=== PATIENT | female | born 1975 | race African-American/Black ===

== ENCOUNTER → 2017-06-17 | Outpatient (CLI) | payer MEDICARE ==
[~2017-06-17] MED LIST: ASPIRIN ADULT L81 M2 PO; AVPAK AZITHROM250 M1 PO; BACTRIM DS 8001 TAB PO; CATAFLAM50 MG PO; CHERATUSSIN AC240 ML PO; CIPRO500 MG PO; CLEOCIN HCL150 MG PO; CRESTOR PO; DEPAKOTE500 MG PO; DIFLUCAN150 MG PO; FIORICET 325 MG1 TAB PO; Fioricet 325 MG1 TAB PO; GLUCOTROL5 MG PO; HYCODAN 1.5 MG480 M1 PO; KROGER NIC21 MG/24 H T; LOPRESSOR50 M1 PO; Lopressor25 MG PO; MELOXICAM7.5 MG PO; METOPROLOL SUCC25 M2 PO; MOTRIN800 MG PO; NITROSTAT0.4 MG SL; PEPCID20 MG PO; PERCOCET 325 MG1 TA2 PO; PRAVACHOL80 M1 PO; PREDNICOT20 MG PO; PREDNISONE10 MG PO; PREDNISONE50 MG PO; SYNTHROID0.025 MG PO; TEGRETOL200 MG PO; TESSALON PERLE100 M1 PO; VENTOLIN H0.09 MG/AC INH; ZITHROMAX Z PA250 MG PO; ZITHROMAX250 MG PO; Zofran4 MG PO; [UNRECOGNIZED DRUG - OTHER] PO
== END | disposition home or self-care (01) ==
LOC: CARD 14:05
DX: I25.10 Atherosclerotic heart disease of native coronary artery without angina pectoris (principal)

== ENCOUNTER 2017-11-11 16:54 | Inpatient (IN) | payer MEDICARE, OTHER ==
[~2017-11-11] VITALS: Ht 170.2 cm; Wt 132.9 kg
[2017-11-11 17:05] VITALS: BP 150/92
[2017-11-11 19:22] VITALS: BP 143/83
[2017-11-11 19:46] LABS: BASO # 0.1 10*3/uL (0.0-0.1); BASO % 0.8 % (0.0-1.0); EOS # 0.2 10*3/uL (0.0-0.4); EOS % 2.5 % (1.0-4.0); HEMATOCRIT 37.3 % (37.0-47.0); HEMOGLOBIN 12.3 g/dl (12.0-16.0); LYMPH # 3.1 10*3/uL (1.3-4.4); LYMPH % 37.2 % (27.0-41.0); MEAN CELL VOLUME 95.2 fl (81.0-99.0); MEAN CORPUSCULAR HGB 31.4 pg (27.0-31.0); MEAN PLATELET VOLUME 11.2 fl (9.6-12.3); MONO # 0.4 10*3/uL (0.1-1.0); MONO % 4.8 % (3.0-9.0); NEUT # 4.6 10*3/uL (2.3-7.9); NEUT % 54.5 % (47.0-73.0); PLATELET COUNT AUTOMATED 213 10*3/uL (130-400); RED BLOOD COUNT 3.92 10*6/uL (4.10-5.10); RED CELL DISTRI WIDTH 12.8 % (0-14.5); WHITE BLOOD COUNT 8.4 10*3/uL (4.8-10.8)
[2017-11-11 19:56] LABS: ACT PARTIAL THROMBO TIME 28.2 SECONDS (20.8-31.5)
[2017-11-11 20:02] LABS: ALBUMIN 3.6 gm/dl (3.1-4.5); ALKALINE PHOSPHATASE 92 U/L (45-117); BUN 9 mg/dl (7-24); CHLORIDE 104 mmol/L (98-107); CREATININE 0.81 mg/dL (0.55-1.02); POTASSIUM 3.8 mmol/L (3.5-5.1); SGOT/AST 31 IU/L (3-35); SGPT/ALT 49 U/L (12-78); SODIUM 139 mmol/L (136-145); TOTAL PROTEIN 7.3 gm/dL (6.4-8.2)
[2017-11-11 20:05] LABS: TROPONIN I < 0.015 ng/ml (<0.045)
[2017-11-11 20:08] VITALS: BP 142/78
[2017-11-11 21:25] VITALS: BP 138/78
[2017-11-12] VITALS: BP 120/68
[2017-11-12 04:00] VITALS: BP 140/80
[2017-11-12 07:01] LABS: BASO # 0.1 10*3/uL (0.0-0.1); BASO % 1.1 % (0.0-1.0); EOS # 0.2 10*3/uL (0.0-0.4); EOS % 2.8 % (1.0-4.0); HEMOGLOBIN 12.3 g/dl (12.0-16.0); LYMPH # 2.6 10*3/uL (1.3-4.4); LYMPH % 35.4 % (27.0-41.0); MEAN CELL VOLUME 95.6 fl (81.0-99.0); MEAN CORPUSCULAR HGB 31.8 pg (27.0-31.0); MEAN CORPUSCULAR HGB CONC 33.2 g/dl (33.0-37.0); MEAN PLATELET VOLUME 11.3 fl (9.6-12.3); MONO # 0.4 10*3/uL (0.1-1.0); MONO % 5.8 % (3.0-9.0); NEUT % 54.6 % (47.0-73.0); PLATELET COUNT AUTOMATED 195 10*3/uL (130-400); RED BLOOD COUNT 3.87 10*6/uL (4.10-5.10); RED CELL DISTRI WIDTH 12.8 % (0-14.5); WHITE BLOOD COUNT 7.2 10*3/uL (4.8-10.8)
[2017-11-12 07:11] LABS: BUN 12 mg/dl (7-24); CHLORIDE 107 mmol/L (98-107); CREATININE 0.75 mg/dL (0.55-1.02); PHOSPHOROUS 4.3 mg/dL (2.5-4.9); SODIUM 139 mmol/L (136-145); TRIGLYCERIDES 202 mg/dl (<150); VLDL CHOLESTEROL 40 mg/dL (6-40)
[2017-11-12 07:19] LABS: CHOLESTEROL 224 mg/dL (<200); HDL CHOLESTEROL 42 mg/dl (40-60); LDL CHOLESTEROL 142 mg/dL (9-159)
[2017-11-12 07:21] LABS: CARBAMAZEPINE (TEGRETOL) TOTAL < 0.5 ug/ml (4-12); VALPROIC ACID (DEPAKENE) < 3.0 ug/ml (50-100)
[2017-11-12 07:54] VITALS: BP 139/73
[2017-11-12 08:18] LABS: VITAMIN D, 25-HYDROXY 6.6 ng/mL (30-100)
[2017-11-12] MEDS ORDERED: Synthroid,Lev200 MCG PO (10:15)
[2017-11-12] MEDS ORDERED: SYNTHROID,LEVO75 MCG PO (10:16)
[2017-11-12] MEDS ORDERED: LOPRESSOR25 MG PO (10:17)
[2017-11-12 12:27] VITALS: BP 159/86
[2017-11-12 16:00] VITALS: BP 158/52
[2017-11-12] MEDS ORDERED: METOPROLOL SUCC25 M2 PO (16:57)
== END 2017-11-12 17:30 | disposition home or self-care (01) | DRG 101 ==
LOC: ED 16:54 → EDHOLD 20:26 → 5E 20:26
PROVIDERS: Student in an Organized Health Care Education/Training Program
DX: G40.909 Epilepsy, unspecified, not intractable, without status epilepticus (principal); I45.81 Long QT syndrome; I48.0 Paroxysmal atrial fibrillation; B34.9 Viral infection, unspecified; G43.909 Migraine, unspecified, not intractable, without status migrainosus; R55 Syncope and collapse; E03.9 Hypothyroidism, unspecified; E66.09 Other obesity due to excess calories; H53.8 Other visual disturbances; I10 Essential (primary) hypertension; F41.9 Anxiety disorder, unspecified; E11.9 Type 2 diabetes mellitus without complications; I25.10 Atherosclerotic heart disease of native coronary artery without angina pectoris; E78.5 Hyperlipidemia, unspecified; I25.2 Old myocardial infarction; Z90.49 Acquired absence of other specified parts of digestive tract; Z90.89 Acquired absence of other organs; Z90.710 Acquired absence of both cervix and uterus; Z83.3 Family history of diabetes mellitus; Z82.49 Family history of ischemic heart disease and other diseases of the circulatory system; Z88.5 Allergy status to narcotic agent; Z88.0 Allergy status to penicillin; Z79.82 Long term (current) use of aspirin; Z79.899 Other long term (current) drug therapy; Z71.6 Tobacco abuse counseling; Z68.34 Body mass index [BMI] 34.0-34.9, adult; Z72.0 Tobacco use; Z87.440 Personal history of urinary (tract) infections; Z91.14 Patient's other noncompliance with medication regimen

== ENCOUNTER 2019-01-07 22:02 | Emergency (ER) | payer MEDICARE, OTHER ==
[~2019-01-07] VITALS: Ht 170.1 cm; Wt 121.6 kg
--- NOTE | ~2019-01-07 | EKG ---
[place], [place] ELECTROCARDIOGRAM REPORT NAME: LORENA GUERRERO UNIT #: [id number] ROOM: DOCTOR: EPIPHANY DRAFT REPORT BIRTHDATE: [birth year] [facility] Test Date: 2019-01-07 Test Time: 23:19:11 Pat Name: LORENA GUERRERO Department: ER Room: 9 Gender: F [employer]: Jessa Feldman : 1975 Requested By: LARISA CABEZAS Order Number: [id number] Reading MD: Sai Bowers MD Measurements Intervals [place] Rate: 83 P: -10 TX: 168 QRS: -14 QRSD: 72 T: 61 QT: 490 QTc: 576 Interpretive Statements Sinus rhythm Low voltage, precordial leads Borderline abnrm T, anterolateral leads Prolonged QT interval Baseline wander in lead(s) V4,V5,V6 Electronically Signed On 01-11-2019 7:53:12 PDT by Sai Bowers MD CM:EKGRPT:ELECTROCARDIOGRAM REPORT [id number] LARISA CABEZAS MD EPIPHANY DRAFT REPORT LARISA CABEZAS MD
[~2019-01-07 22:02] MED LIST changes: +LOPRESSOR25 MG PO; +SYNTHROID,LEVO75 MCG PO; +Synthroid,Lev200 MCG PO
[2019-01-07 22:07] VITALS: BP 125/71
[2019-01-07 23:41] LABS: BILIRUBIN NEGATIVE (NEGATIVE); BLOOD NEGATIVE (NEGATIVE); CLARITY SL CLOUDY (CLEAR); COLOR YELLOW (YELLOW); GLUCOSE NEGATIVE (NEGATIVE); KETONE NEGATIVE (NEGATIVE); LEUKO ESTERASE NEGATIVE (NEGATIVE); NITRITE NEGATIVE (NEGATIVE); SPECIFIC GRAVITY 1.025 (1.005-1.030); UROBILINOGEN 0.2 E.U./dl (0.2-1.0)
[2019-01-07 23:54] LABS: BASO # 0.1 10*3/uL (0.0-0.1); BASO % 0.6 % (0.0-1.0); EOS # 0.3 10*3/uL (0.0-0.4); EOS % 2.7 % (1.0-4.0); HEMATOCRIT 37.7 % (37.0-47.0); HEMOGLOBIN 12.1 g/dl (12.0-16.0); LYMPH # 2.9 10*3/uL (1.3-4.4); LYMPH % 29.6 % (27.0-41.0); MEAN CELL VOLUME 97.7 fl (81.0-99.0); MEAN CORPUSCULAR HGB 31.3 pg (27.0-31.0); MEAN CORPUSCULAR HGB CONC 32.1 g/dl (33.0-37.0); MEAN PLATELET VOLUME 10.9 fl (9.6-12.3); MONO # 0.6 10*3/uL (0.1-1.0); MONO % 5.5 % (3.0-9.0); NEUT # 6.1 10*3/uL (2.3-7.9); NEUT % 61.3 % (47.0-73.0); PLATELET COUNT AUTOMATED 246 10*3/uL (130-400); RED BLOOD COUNT 3.86 10*6/uL (4.10-5.10); RED CELL DISTRI WIDTH 13.7 % (0-14.5); WHITE BLOOD COUNT 9.9 10*3/uL (4.8-10.8)
[2019-01-08 00:10] LABS: ALBUMIN 3.3 gm/dl (3.1-4.5); ALKALINE PHOSPHATASE 90 U/L (45-117); BUN 9 mg/dl (7-24); CHLORIDE 108 mmol/L (98-107); POTASSIUM 3.5 mmol/L (3.5-5.1); SGOT/AST 15 IU/L (3-35); SGPT/ALT 28 U/L (12-78); SODIUM 140 mmol/L (136-145)
[2019-01-08 00:10] LABS: EPITHELIAL CELLS TNTC
[2019-01-08 00:11] LABS: BACTERIA 1+
[2019-01-08 00:11] LABS: TROPONIN I < 0.015 ng/ml (<0.045)
[2019-01-08 00:12] LABS: WBC 0-2 wbc/hpf (0-5)
== END 2019-01-08 02:07 | disposition home or self-care (01) ==
LOC: ED 22:02
PROVIDERS: Emergency Medicine Emergency Medical Services
DX: G43.909 Migraine, unspecified, not intractable, without status migrainosus (principal); I10 Essential (primary) hypertension; I48.91 Unspecified atrial fibrillation; E78.5 Hyperlipidemia, unspecified; E03.9 Hypothyroidism, unspecified; I25.2 Old myocardial infarction; E66.9 Obesity, unspecified; G40.909 Epilepsy, unspecified, not intractable, without status epilepticus; F17.200 Nicotine dependence, unspecified, uncomplicated; Z90.710 Acquired absence of both cervix and uterus; Z90.49 Acquired absence of other specified parts of digestive tract; Z88.8 Allergy status to other drugs, medicaments and biological substances; Z88.0 Allergy status to penicillin; Z79.82 Long term (current) use of aspirin; Z79.899 Other long term (current) drug therapy

== ENCOUNTER 2019-08-09 19:43 | Emergency (ER) | payer MEDICARE, OTHER ==
[~2019-08-09] VITALS: Ht 170.1 cm; Wt 117.5 kg
--- NOTE | ~2019-08-09 | EKG ---
[place], [place] ELECTROCARDIOGRAM REPORT NAME: LORENA GUERRERO UNIT #: [id number] ROOM: DOCTOR: EPIPHANY DRAFT REPORT BIRTHDATE: [birth year] [facility] Test Date: 2019-08-09 Test Time: 20:58:58 Pat Name: LORENA GUERRERO Department: Room: Gender: F Independent [employer]: : 1975 Requested By: FLACO SANTANA Order Number: [id number] Reading MD: Measurements Intervals [place] Rate: 66 P: 11 ME: 166 QRS: -4 QRSD: 84 T: 40 QT: 453 QTc: 475 Interpretive Statements Sinus rhythm RSR' in V1 or V2, right VCD or RVH Baseline wander in lead(s) II,III,aVF,V6 Compared to ECG 01/07/2019 23:19:11 Right ventricular hypertrophy now present RSR' in V1 or V2 now present Prolonged QT interval no longer present CM:EKGRPT:ELECTROCARDIOGRAM REPORT [id number] FLACO SUN DRAFT REPORT FLACO SANTANA DO
[2019-08-09 21:18] LABS: BASO # 0.1 10*3/uL (0.0-0.1); BASO % 0.9 % (0.0-1.0); EOS # 0.3 10*3/uL (0.0-0.4); EOS % 3.3 % (1.0-4.0); HEMATOCRIT 40.7 % (37.0-47.0); HEMOGLOBIN 13.1 g/dl (12.0-16.0); LYMPH # 3.4 10*3/uL (1.3-4.4); LYMPH % 40.9 % (27.0-41.0); MEAN CELL VOLUME 96.9 fl (81.0-99.0); MEAN CORPUSCULAR HGB 31.2 pg (27.0-31.0); MEAN CORPUSCULAR HGB CONC 32.2 g/dl (33.0-37.0); MEAN PLATELET VOLUME 11.1 fl (9.6-12.3); MONO # 0.4 10*3/uL (0.1-1.0); MONO % 5.1 % (3.0-9.0); NEUT # 4.1 10*3/uL (2.3-7.9); NEUT % 49.6 % (47.0-73.0); PLATELET COUNT AUTOMATED 240 10*3/uL (130-400); RED CELL DISTRI WIDTH 13.4 % (0-14.5); WHITE BLOOD COUNT 8.2 10*3/uL (4.8-10.8)
[2019-08-09 21:35] LABS: ALBUMIN 3.7 gm/dl (3.1-4.5); ALKALINE PHOSPHATASE 83 U/L (45-117); BUN 11 mg/dl (7-24); CHLORIDE 109 mmol/L (98-107); CREATININE 0.66 mg/dL (0.55-1.02); POTASSIUM 3.7 mmol/L (3.5-5.1); SGOT/AST 27 IU/L (3-35); SGPT/ALT 35 U/L (12-78); SODIUM 139 mmol/L (136-145); TOTAL PROTEIN 7.4 gm/dL (6.4-8.2)
[2019-08-09 21:39] LABS: TROPONIN I < 0.015 ng/ml (<0.045)
[2019-08-09 22:09] LABS: INTERNATIONAL NORM RATIO 0.9 (2.0-3.5)
[2019-08-09 23:56] VITALS: BP 130/71
== END 2019-08-10 00:57 | disposition home or self-care (01) ==
LOC: ED 19:43
PROVIDERS: Emergency Medicine
DX: I10 Essential (primary) hypertension (principal); E03.9 Hypothyroidism, unspecified; I48.91 Unspecified atrial fibrillation; E78.00 Pure hypercholesterolemia, unspecified; G43.909 Migraine, unspecified, not intractable, without status migrainosus; E66.9 Obesity, unspecified; G40.909 Epilepsy, unspecified, not intractable, without status epilepticus; F17.200 Nicotine dependence, unspecified, uncomplicated; Z91.19 Patient's noncompliance with other medical treatment and regimen; Z98.61 Coronary angioplasty status; Z88.8 Allergy status to other drugs, medicaments and biological substances; Z88.0 Allergy status to penicillin; Z79.899 Other long term (current) drug therapy

== ENCOUNTER → 2020-07-19 | Outpatient (CLI) | payer MEDICARE, OTHER ==
[~2020-07-19] MED LIST changes: +NORVASC5 MG PO
--- NOTE | 2020-07-19 12:30 | NUR ---
INFORMED SIGNED CONSENT OBTAINED FOR CARDIOLITE STRESS TEST WITH DR BRICEÑO. RESTING EKG NSR HR 71 BP 140/62 IN SUPINE POSITION, STANDING HR 91 BP 130/70. PT COMPLETED 4 MINUTES OF A BRYN PROTOCOL WITH PT COMPLETING 1 MIN OF STAGE II AT 2.5 MPH AND A 12% GRADE. PT REACHED A PEAK HR OF 148 WHICH REPRESENTS 84% OF PREDICTED MAXIMIM AND A PEAK BP OF 158/90. TEST TERMINATED DUE TO FATIGUE AND SOB. NO ARRHYTHMIAS NOTED. NON DIAGNOSTIC ST CHANGES SEEN. LAST RECOVERY HR OF 93 BP 130/76. PT IN STABLE CONDITION, AWAITING NUCLEAR IMAGES.
== END | disposition home or self-care (01) ==
LOC: CARD 00:53
PROVIDERS: ATTEND Internal Medicine Cardiovascular Disease
DX: R06.02 Shortness of breath (principal); R06.00 Dyspnea, unspecified; I10 Essential (primary) hypertension